=== PATIENT | female | born 1960 | race Caucasian/White ===

== ENCOUNTER 2019-08-28 12:37 | Emergency (ER) | payer MEDICARE, MEDICAID ==
[~2019-08-28] VITALS: Ht 162.6 cm; Wt 65.7 kg
[2019-08-28 12:54] VITALS: BP 121/65
== END 2019-08-28 13:40 | disposition home or self-care (01) ==
LOC: ED 13:20
DX: J01.00 Acute maxillary sinusitis, unspecified (principal); J01.10 Acute frontal sinusitis, unspecified; Z85.3 Personal history of malignant neoplasm of breast
CPT/HCPCS: 99283